=== PATIENT | male | born 1965 | race Caucasian/White ===

== ENCOUNTER 2023-07-24 11:21 | Outpatient (CLI) | payer OTHER, SELFPAY ==
--- NOTE | ~2023-07-24 | XR_ITS ---
AP and lateral views of the right hip Clinical history: Pain Findings: No acute fracture or dislocation is seen. Osseous alignment is anatomic. Right hip joint is preserved. Soft tissues are unremarkable. Impression: No significant abnormality is seen. Reviewed, dictated and finalized at location M. Impression: No significant abnormality is seen.
== END 2023-07-24 11:22 ==
PROVIDERS: PCP Internal Medicine; Visit Provider Internal Medicine
DX: M25.551 Pain in right hip (principal)
CPT/HCPCS: 73502

== ENCOUNTER 2024-05-18 15:34 | Outpatient (CLI) | payer OTHER, SELFPAY ==
--- NOTE | ~2024-05-18 | XR_ITS ---
EXAMINATION: XR lumbar spine 2-3V DATE: 05/18/2024 15:57 INDICATION: Low back pain. TECHNIQUE: 3 views of lumbar spine including standing views were obtained. COMPARISON: None. FINDINGS: There is 3 degrees dextrocurvature of thoracolumbar spine. Vertebral body heights are svitlana l. There is mildly decreased disc height at L3-L4, L4-L5, and L5-S1. There is multilevel mild to mode rate facet joint osteoarthritis. IMPRESSION: 1. Mild lumbar spondylosis. Reviewed, dictated and finalized at location A. L ENGINEERING MANAGER IMPRESSION: 1. Mild lumbar spondylosis.
--- NOTE | ~2024-05-18 | XR_ITS ---
EXAMINATION: XR_CERV2-3V_CR DATE: 05/18/2024 15:57 INDICATION: Neck pain. TECHNIQUE: 3 views of cervical spine were obtained. COMPARISON: None. FINDINGS: There is 5 degrees levocurvature of cervicothoracic spine. Vertebral body heights are svitlana l. There is mildly decreased disc height at C4-C5 and moderately decreased disc height at C5-C6 and C 6-C7. There is multilevel mild facet joint osteoarthritis. There is mild central canal stenosis at C5 -C6 and C6-C7. No prevertebral soft tissue swelling. IMPRESSION: 1. Moderate cervical spondylosis. Reviewed, dictated and finalized at location A. 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
--- NOTE | ~2024-05-18 | XR_ITS ---
EXAMINATION: XR thoracic spine 2V DATE: 05/18/2024 15:57 INDICATION: Mid back pain. TECHNIQUE: 3 views of thoracic spine were obtained. COMPARISON: None. FINDINGS: There is 7 degrees levocurvature of thoracic spine. Vertebral body heights are normal. Ther e is mildly decreased disc height at multiple levels in mid and lower thoracic spine. IMPRESSION: 1. Mild thoracic spondylosis. Reviewed, dictated and finalized at location A. 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
== END 2024-05-18 15:35 | disposition home or self-care (01) ==
LOC: MICIMG 15:35
PROVIDERS: PCP Chiropractor; Visit Provider Chiropractor
DX: M43.02 Spondylolysis, cervical region (principal); M43.04 Spondylolysis, thoracic region; M43.06 Spondylolysis, lumbar region
CPT/HCPCS: 72040; 72070; 72100

== ENCOUNTER 2024-06-19 07:18 | Outpatient (CLI) | payer OTHER, SELFPAY | END 2024-06-19 07:19 | disposition home or self-care (01) | PROVIDERS: PCP Chiropractor; Visit Provider Chiropractor | DX: R07.81 Pleurodynia (principal) | CPT/HCPCS: 71101 ==

== ENCOUNTER 2024-10-01 11:07 | Outpatient (CLI) | payer OTHER, SELFPAY ==
--- OUTSIDE RECORDS SUMMARY | 2024-10-01 12:08 | XMS_ITS | Clinical Summary ---
Author Organization [facility] Address [address] [place] [address] Care Team Providers Care Physician Coding Specialist Name Role Phone Jaya Winston MD Primary Care Provider [phone] Luis Alberto Painting MD Unavailable [phone] Source Comments [facility],non-owned Affiliates and Associated Physician Practices is amultiple site organization consisting of ambulatory clinics and hospital sitesin [place], [place], [place] and [place]. This disclosure is being madepursuant to the Care Everywhere program and may not contain all information available regarding this patient. Last updated 18.[facility] Allergies No known active allergies Medications * Be aware that medications may not be up to date on this document. Alwaysverify current medications with the patient. albuterol HFA (PROVENTIL;VENT KATHARINA;PROAIR) 108 (90 BASE) MCG/ACT inhalerIndicati ons:Asthma Inhale 2 Puffs by mouth every 6 hours as needed. 1 Inhaler 11 02/21/2010 Active Multiple Vitamin (MULTI-VITAMIN PO) Take by mouth. Active B Complex Vitamins (B COMPLEX PO) Take by mouth. Active [place]-3 Fatty Acids (FISH OIL PO) Take by mouth. Active GLUCOSAMINE HCL PO Take by mouth. Active naproxen (NAPROSYN) 500 MG tablet Take 1 Tab by mouth 2 times daily. 60 Tab 1 01/22/2012 Active diclofenac sodium (VOLTAREN) 1 % gel Apply 2 g to affected area 4 times daily. Apply to foot as needed for pain 100 g 3 12/29/2013 Active Active Problems Problem Noted Date Diagnosed Date Tear of medial cartilage or meniscus of knee, cu rrent 08/01/2012 Left knee pain 08/01/2012 BPH (benign prostatic hyperplasia) 07/01/2009 FH: prostate cancer 07/01/2009 Hyperlipidemia 06/29/2009 Asthma 06/29/2009 Achilles tendonitis 06/29/2009 Immunizations Immunization Administration Dates Next Due INFLUENZA VACCINE, TRIV. 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 CLERK Gender Identity Not on file Sexual Orientation Not on file Last Filed Vital Signs Vital Sign Reading Time Taken Comments Blood Pressure 126/70 11/17/2014 3:18 PM CDT Pulse 66 08/23/2010 2:46 PM CDT Temperature - - Respiratory Rate 12 08/23/2010 2:46 PM CDT Oxygen Saturation - - Inhaled Oxygen Concentration - - Weight 95.3 kg (210 lb) 11/17/2014 3:18 PM CDT Height 188 cm (6' 2) 11/17/2014 3:18 PM CDT Body Mass Index 26.96 11/17/2014 3:18 PM CDT Plan of Treatment Health Maintenance Due Date Last Done Comments COLOGUARD (AGES 45-75) - COL ON CA SCREENING 1966 COLON MONITORING 1966 COLONOSCOPY - COLON CA SCREENING 1966 CT COLONOGRAPHY - COLON CA SCREENING 1966 Colorectal Cancer Screening 1966 FIT - COLON CA SCREENING 1966 FLEX SIG - COLON CA SCREENING 1966 HIV SCREENING 1981 HEPATITIS C SCREENING 02/25/1984 DTAP/TDAP/TD VACCINES (1 - Tdap) 1985 HEPATITIS B VACCINE (1 of 3 - 19+ 3-dose series) 1985 LIPID TESTING 02/17/2015 02/17/2010, 06/21/2009 PNEUMOCOCCAL VACCINE 50+ (1 of 1 - PCV) 2016 ZOSTER VACCINE (1 of 2) 2016 COVID-19 VACCINE (1 - 2023-2 5 season) 2023 DEPRESSION SCREENING 04/22/2024 INFLUENZA VACCINE (Season Ended) 2024 02/21/2010 HIB VACCINE Aged Out No longer eligi ble based on patient's age to complete this topic HPV VACCINE Aged Out No longer eligi ble based on patient's age to complete this topic MENINGOCOCCAL (Group B) VACCINE SHARED DECISION-MAKING Aged Out No longer eligible based on patient's age to complete this topic MENINGOCOCCAL GROUPS A/C/Y/W VACCINE Aged Out No longer eligible b ased on patient's age to complete this topic Procedures Procedure Name Priority Date/Time Associated Diagnosis Comments LIPID PROFILE Routine 02/17/2010 8:43 AM CDT Routine check-up from Last 3 Months or Most Recently Relevant to Health Maintenance Results * (ABNORMAL) LIPID PROFILE (LIPID PANEL) (02/17/2010 8:43 AM CDT) Cholesterol 218(H) 100 - 199 mg/dL [facility] ACCOUNT BILL Triglycerides 175(H) 0 - 149 mg/dL [facility] ACCOUNT BILL HDL Cholesterol 54 >39 mg/dL [facility] ACCOUNT BILL Comment: According to ATP-III Guidelines, HDL-C >59 mg/dL is considered a negative risk factor for CHD. VLDL Calculated 35 5 - 40 mg/dL [facility] ACCOUNT BILL LDL Calculated 129(H) 0 - 99 mg/dL [facility] ACCOUNT BILL BLOOD SPECIMEN / Unknown 02/17/2010 8:43 AM CDT 02/17/2010 6:15 PM CDT Narrative Resulting Agency Comment [facility] [address] [facility] [id number] Shahbaz Marte MD LAB - CHEMISTRY ORDERABLES F inal Result [facility] ACCOUNT BILL [address] [place] [address] from Last 3 Months or Most Recently Relevant to Health Maintenance Insurance ANTHEM ANTHEM Care Teams Physician Coding Specialist Relationship Specialty Start Date End Date Jaya Winston MD [facility] [place] [address] PCP - General Family Medicine 01/14/12 Luis Alberto Painting MD [facility] [place] [address] Orthopedic Surgery 07/21/12
--- OUTSIDE RECORDS SUMMARY | 2024-10-01 12:08 | XMS_ITS | Continuity of Care Document ---
Author Organization [facility] Address [address] [place] [address] Phone Care Team Providers Care Printing Screen Assembler Name Role Phone Levi Brady MD Unavailable Unavailable Advance Directives Directive Yes / No Effective Date File Name No Information Encounters Encounter Description Practice Location Reason(s) For Visit Diagnoses Date Provider Providers Copied on Encounter [facility], [address], [place], [place], [id number], tel:[phone] [facility] No Information Caitlyn Sims. [address] [place] [address], [id number], [place]. tel:[phone] Family History Family Member Type Diagnosis Age At Onset No Information Payers Payer name Insurance type Covered constitution party ID Authoriza tion(s) BCBS [employer] AN[employer] [id number] Social History Type Description Quantity Date Captured Comments Sex Male Smoking Status No Information Chief Complaint And Reason For Visit No Information Reason For Referral Reason For Referral No Information History Of Present Illness Encounter Date Complaint History Of Prese nt Illness No Information Functional Status Date Functional Assessmen t No Information Instructions Date Instruction Additional Infor mation No Information Assessments Type Assessment Date No Information Patient Care Teams Name Effective Dates (start - stop) Status Members No Information
--- OUTSIDE RECORDS SUMMARY | 2024-10-01 12:08 | XMS_ITS | Clinical Summary ---
Author Organization [facility] Address [address] [place] [address] Care Team Providers Care Fire Safety Manager Name Role Phone Yary Varela MD Primary Care Provider [phone] Allergies No known active allergies Medications omega-3 fatty acids-fish oil (FISH OIL) 300-1,000 mg capsule 0 0 6 Active multivitamin tablet tablet 0 0 6 Active tamsulosin (FLOMAX) 0.4 mg extended release capsule Take 1 capsule (0.4 mg total) by mouth daily 30 capsule 11 9 Active albuterol HFA (PROVENTIL HFA,VENTOLIN HFA,PROAIR HFA) 90 mcg/actuation inhaler Inhale 2 puffs every 6 (six) hours as needed 0 Active clindamycin (CLEOCIN T) 1 % lotion APPLY TOPICALLY TO THE AFFECTED AREA TWICE DAILY FOR 10 DAYS 2 Active clobetasoL (TEMOVATE) 0.05 % ointment APPLY 1 APPLICATION TOPCIALLY TO AFFECTED AREAS ON THE LEG TWICE DAILY FOR 10 DAYS 2 Active diclofenac sodium (VOLTAREN) 1 % gel Apply 2 g topically 4 (four) times a day 4 Active doxycycline hyclate 100 mg capsule Take 100 mg by mouth 2 (two) times a day 2 Active mupirocin (BACTROBAN) 2 % ointment 2 Active naproxen (NAPROSYN) 500 mg tablet Take 500 mg by mouth 2 (two) times a day 2 Active Active Problems Problem Noted Date Diagnosed Date Arthritis of right knee 02/26/2022 Assessment & Plan (02/26/2022 10:40 AM TIE LAYER): Patient's history exam is consistent with degenerative arthritis and knee with reactive synovitis. If any mechanical locking develops further workup the knee would be indicated. After reviewing the treatment options patient elected undergo a cortisone injection today. He tolerated the procedure well. 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 Perineal pain in male 05/05/2014 Benign prostatic hyperplasia with urinary obstru ction 05/05/2014 Prostatitis 02/10/2013 Left knee pain 08/01/2012 Tear of medial cartilage or meniscus of knee, cu rrent 08/01/2012 Urinary urgency 05/11/2011 FH: prostate cancer 07/01/2009 Achilles tendonitis 06/29/2009 Asthma 06/29/2009 Hyperlipidemia 06/29/2009 Medical History Medical History Date Comments Hx Other Medical carol knee menicu s repair; Comments: CAC 05/19/2015 - Family History Medical History Relation Name Comments Prostate cancer Father Cancer, pros burciaga; Breast cancer Mother Cancer, breast ; Relation Name Status Comments Father Mother Social History Tobacco Use Types Packs/Day Years Used Date Smoking Tobacco: Never Assessed Sex and Gender Information Value Date Recorded Sex Assigned at Not on file Legal Sex Male 9:19 PM TIE LAYER Gender Identity Not on file Sexual Orientation Not on file Obstetrics History Last Filed Vital Signs Vital Sign Reading Time Taken Comments Blood Pressure 133/95 02/26/2022 10:10 AM TIE LAYER Pulse 70 02/26/2022 10:10 AM TIE LAYER Temperature - - Respiratory Rate - - Oxygen Saturation - - Inhaled Oxygen Concentration - - Weight 99.7 kg (219 lb 12.8 oz) 022 10:10 AM TIE LAYER Height 188 cm (6' 2) 02/26/2022 10:10 AM TIE LAYER Body Mass Index 28.22 02/26/2022 10:10 AM TIE LAYER Plan of Treatment Health Maintenance Due Date Last Done Comments Colon Cancer Screening-Colonoscopy 1966 Depression Screening 1966 Hepatitis C Screening 1966 Prostate Cancer Screening-PSA 1966 DTaP/Tdap/Td Vaccine (1 - Tdap) 1977 Hepatitis B Screening 1984 Regular Well Visit/Exam 18-64 1984 Pneumococcal vaccine <65 (1 of 2 - PCV) 1985 Zoster Vaccine (2 of 2) 03/08/2022 01/11/2022 Covid-19 Vaccine (5 - 2023-2 5 season) 2023 10/05/2021, 04/06/2021, 07/01/2020, Additional history exists Influenza Vaccine (Season Ended) 2024 01/08/2022, 02/16/2021, 02/10/2020, Additional history exists Insurance [place] Care Teams Fire Safety Manager Relationship Specialty Start Date End Date Yary Varela MD PCP - General Internal Medicine 02/20/22
--- OUTSIDE RECORDS SUMMARY | 2024-10-01 12:08 | XMS_ITS | Referral Summary ---
Author Organization [facility] Address [address] [place] [address] Care Team Providers Care Reserve Officer Name Role Phone Yary Varela MD Primary Care Provider [phone] Allergies No known active allergies Medications omega-3 [...] 02/26/2022 Assessment & Plan (02/26/2022 10:40 AM DRAFTER): Patient's history exam is consistent with degenerative [...] Achilles tendonitis 06/29/2009 Asthma 06/29/2009 Hyperlipidemia 06/29/2009 Social History Tobacco Use Types Packs/Day Years Used Date Smoking Tobacco: Never Assessed Sex and Gender Information Value Date Recorded Sex Assigned at Not on file Legal Sex Male 9:19 PM DRAFTER Gender Identity Not on file Sexual Orientation Not on file Last Filed Vital Signs Vital Sign Reading Time Taken Comments Blood Pressure 133/95 02/26/2022 10:10 AM DRAFTER Pulse 70 02/26/2022 10:10 AM DRAFTER Temperature - - Respiratory Rate - - Oxygen Saturation - - Inhaled Oxygen Concentration - - Weight 99.7 kg (219 lb 12.8 oz) 022 10:10 AM DRAFTER Height 188 cm (6' 2) 02/26/2022 10:10 AM DRAFTER Body Mass Index 28.22 02/26/2022 10:10 AM DRAFTER Plan of Treatment Not on file Insurance [employer] [place] [employer] [place] Care Teams Reserve Officer Relationship Specialty Start Date End Date Yary Varela MD PCP - General Internal Medicine 02/20/22
--- OUTSIDE RECORDS SUMMARY | 2024-10-01 12:08 | XMS_ITS | Clinical Summary ---
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 Gender Identity Not on file Sexual Orientation Not on file Plan of Treatment Health Maintenance Due Date Last Done Comments DTAP/TDAP/TD VACCINES (1 - Tdap) 1985 HEPATITIS B VACCINES (1 of 3 - 19+ 3-dose series) 02/20 COLORECTAL SCREENING 2011 Colorectal Cancer Screening 2011 FIT-DNA Q 3 years 2011 FIT/FOBT Q 1 year 2011 Flex Sig/CT Colonography Q 5 years 2011 ZOSTER VACCINE (1 of 2) 2016 INFLUENZA VACCINE (#1) 2023 Insurance [employer] OPEN ACCESS Care Teams Wellness Educator Relationship Specialty Start Date End Date Jaya Winston MD [address] [place] [id number] PCP - General Family Practice 09/26/11
[2024-10-01 19:38] LABS: Hematocrit 42.9 % (42.0-52.0); Hemoglobin 13.9 g/dL (14.0-18.0); Mean Corpuscular HGB Conc 32.4 g/dl (32-36); Mean Corpuscular Hemoglobin 29.3 pg (26-34); Mean Corpuscular Volume 90.5 fl (80-100); Mean Platelet Volume 9.5 fl (7.4-10.4); Platelet Count Result 211 k/mm3 (150-375); Red Blood Count 4.74 M/mm3 (4.6-6.20); Red Cell Distribution Width 13.6 % (11.5-14.5); White Blood Count 4.5 K/mm3 (4.5-10.0)
[2024-10-01 21:04] LABS: Alanine Aminotransferase 28 U/L (6-50); Albumin Level 4.3 g/dL (3.5-5.1); Alkaline Phosphatase 32 U/L (38-126); Anion Gap 3 mmol/L (4-12); Aspartate Amino Transferase 59 U/L (17-59); Bilirubin,Total 0.6 mg/dL (0.2-1.3); Blood Urea Nitrogen 18 mg/dL (9-20); Calcium 9.4 mg/dL (8.4-10.2); Carbon Dioxide 30 mmol/L (22-30); Chloride 104 mmol/L (98-107); Cholesterol 216 mg/dL (0-200); Estimated Glomerular Filt Rate > 60; Glucose 84 mg/dL (65-110); HDL Direct 55 mg/dL; Potassium 4.8 mmol/L (3.4-5.0); Sodium 137 mmol/L (137-145); Total Protein 6.9 g/dL (6.3-8.2); Triglycerides 79 mg/dL (<150)
[2024-10-01 21:15] LABS: LDL Cholesterol Direct 115 mg/dL
[2024-10-01 21:39] LABS: Prostate Specific Antigen 3.8 ng/mL (< OR = 4.0)
== END 2024-10-01 11:08 | disposition home or self-care (01) ==
LOC: ANHGOSHLAB 11:08
PROVIDERS: PCP Family Medicine; Visit Provider Family Medicine
DX: Z12.5 Encounter for screening for malignant neoplasm of prostate (principal); E66.3 Overweight; Z79.899 Other long term (current) drug therapy
CPT/HCPCS: 36415; 80053; 80061; 84153; 84443; 85027; G0103